=== PATIENT | female | born 1995 | race Caucasian/White ===

== ENCOUNTER 2019-04-22 11:59 | Outpatient (CLI) | payer MEDICAID ==
[2019-04-22 14:44] LABS: ADD UMIC YES; UR ASCORBIC ACID NEGATIVE (NEGATIVE); UR BACTERIA FEW /HPF (NONE SEEN); UR BILIRUBIN (Dip) NEGATIVE (NEGATIVE); UR BLOOD (Dip) NEGATIVE (NEGATIVE); UR CLARITY CLEAR (CLEAR); UR COLOR STRAW (YELLOW); UR GLUCOSE (Dip) NEGATIVE (NEGATIVE); UR KETONES (Dip) NEGATIVE (NEGATIVE); UR LEUKOCYTE ESTERASE (Dip) 1+ Leu/ul (NEGATIVE); UR NITRITE (Dip) NEGATIVE (NEGATIVE); UR RBC 0 /HPF (0-5); UR SPECIFIC GRAVITY (Dip) 1.005 (1.003-1.030); UR SQUAMOUS EPITHELIAL CELL FEW /HPF (FEW); UR TOTAL PROTEIN (Dip) NEGATIVE (NEGATIVE); UR UROBILINOGEN (Dip) NEGATIVE (NEGATIVE); UR WBC 2 /HPF (0-5)
[2019-04-22 15:40] LABS: ADD MAN DIFF? NO
[2019-04-22 15:42] LABS: BASOPHILS % 0.2 % (0.0-2.0); EOSINOPHILS % 0.4 % (0.0-7.0); HEMATOCRIT 34.9 % (37.0-47.0); HEMOGLOBIN 11.3 g/dl (12.0-16.0); LYMPHOCYTES # 1.7 10^3/ul (0.8-2.9); LYMPHOCYTES % 20.3 % (15.0-51.0); MEAN CORPUSCULAR HEMOGLOBIN 28.1 pg (29.0-33.0); MEAN CORPUSCULAR HGB CONC 32.4 g/dl (32.0-37.0); MEAN CORPUSCULAR VOLUME 86.8 fl (82.0-101.0); MEAN PLATELET VOLUME 11.8 fl (7.4-10.4); MONOCYTE # 0.3 10^3/ul (0.3-0.9); MONOCYTES % 4.2 % (0.0-11.0); NEUTROPHIL # 6.1 10^3/ul (1.6-7.5); NEUTROPHILS % 74.5 % (39.0-77.0); PLATELET COUNT 223 10^3/UL (140-415); RED BLOOD COUNT 4.02 10^6/ul (4.20-5.40); RED CELL DISTRIBUTION WIDTH 14.8 % (11.5-14.5)
[2019-04-22 15:42] LABS: WHITE BLOOD COUNT 8.2 10^3/ul (4.8-10.8)
[2019-04-22 16:04] LABS: ALANINE AMINOTRANSFERASE 29 IU/L (13-69); ALBUMIN 3.4 g/dl (3.3-4.9); ALBUMIN/GLOBULIN RATIO 1.06; ALKALINE PHOSPHATASE 133 IU/L (42-121); ANION GAP 8 (5-13); ASPARTATE AMINO TRANSFERASE 25 IU/L (15-46); BILIRUBIN,INDIRECT 0.4 mg/dl (0-1.1); BILIRUBIN,TOTAL 0.4 mg/dl (0.2-1.3); BLOOD UREA NITROGEN 5 mg/dl (7-20); CALCIUM 9.2 mg/dl (8.4-10.2); CARBON DIOXIDE 22 mmol/L (21-31); CHLORIDE 110 mmol/L (97-110); Estimated GFR > 60 mL/min (>60); GLUCOSE 68 mg/dl (70-220); POTASSIUM 4.5 mmol/L (3.5-5.1); SODIUM 140 mmol/L (135-144); TOTAL PROTEIN 6.6 g/dl (6.1-8.1); URIC ACID 4.2 mg/dl (3.1-7.9)
[2019-04-22 16:05] LABS: INR 0.89; PROTIME 12.2 Sec (11.9-14.9)
[2019-04-22 16:06] LABS: PARTIAL THROMBOPLASTIN TIME 29.4 Sec (23.0-35.0)
[2019-04-22] MEDS: LACTATED RINGER'S 1,000 ML IV (19:41)
== END 2019-04-22 21:14 | disposition home or self-care (01) ==
LOC: OBT 11:59 → L-D 12:03 → OBT 21:14
DX: O13.3 Gestational [pregnancy-induced] hypertension without significant proteinuria, third trimester (principal); Z3A.31 31 weeks gestation of pregnancy
CPT/HCPCS: 36415; 76817; 76818; 80053; 81001; 82731; 84560; 85025; 85384; 85610; 85730; 96360; 96361

== ENCOUNTER 2019-04-29 11:30 | Inpatient (IN) | payer MEDICAID ==
[2019-04-29] MEDS: LACTATED RINGER'S 1,000 ML IV (13:53)
[2019-04-29 14:10] LABS: ADD MAN DIFF? NO
[2019-04-29 14:14] LABS: WHITE BLOOD COUNT 8.4 10^3/ul (4.8-10.8)
[2019-04-29 14:14] LABS: BASOPHILS % 0.1 % (0.0-2.0); EOSINOPHILS % 0.5 % (0.0-7.0); HEMATOCRIT 36.2 % (37.0-47.0); HEMOGLOBIN 11.7 g/dl (12.0-16.0); LYMPHOCYTES # 1.6 10^3/ul (0.8-2.9); MEAN CORPUSCULAR HEMOGLOBIN 28.1 pg (29.0-33.0); MEAN CORPUSCULAR HGB CONC 32.3 g/dl (32.0-37.0); MEAN PLATELET VOLUME 12.1 fl (7.4-10.4); MONOCYTE # 0.4 10^3/ul (0.3-0.9); MONOCYTES % 4.5 % (0.0-11.0); NEUTROPHIL # 6.3 10^3/ul (1.6-7.5); NEUTROPHILS % 75.4 % (39.0-77.0); PLATELET COUNT 225 10^3/UL (140-415); RED BLOOD COUNT 4.16 10^6/ul (4.20-5.40); RED CELL DISTRIBUTION WIDTH 14.8 % (11.5-14.5)
[2019-04-29] MEDS: MAGNESIUM SULFATE 4 GM/100 ML 100 ML IVPB (14:16)
[2019-04-29 14:33] LABS: ALANINE AMINOTRANSFERASE 24 IU/L (13-69); ALBUMIN 3.3 g/dl (3.3-4.9); ALBUMIN/GLOBULIN RATIO 1.03; ALKALINE PHOSPHATASE 140 IU/L (42-121); ANION GAP 7 (5-13); ASPARTATE AMINO TRANSFERASE 25 IU/L (15-46); BILIRUBIN,INDIRECT 0.3 mg/dl (0-1.1); BILIRUBIN,TOTAL 0.3 mg/dl (0.2-1.3); BLOOD UREA NITROGEN 6 mg/dl (7-20); CALCIUM 9.3 mg/dl (8.4-10.2); CARBON DIOXIDE 22 mmol/L (21-31); CHLORIDE 110 mmol/L (97-110); CREATININE 0.41 mg/dl (0.44-1.00); Estimated GFR > 60 mL/min (>60); GLUCOSE 64 mg/dl (70-220); POTASSIUM 4.1 mmol/L (3.5-5.1); SODIUM 139 mmol/L (135-144); TOTAL PROTEIN 6.5 g/dl (6.1-8.1); URIC ACID 3.9 mg/dl (3.1-7.9)
[2019-04-29] MEDS: BETAMET NA PHOS/AC(6 MG/ML) 2 ML INJ SYG IM (14:37)
[2019-04-29 14:38] LABS: INR 0.89; PROTIME 12.2 Sec (11.9-14.9)
[2019-04-29] MEDS: MAGNESIUM SULFATE 20 GM/500 ML 500 ML IV (14:51)
[2019-04-29] MEDS: LABETALOL 100 MG TAB PO (21:36)
[2019-04-30] MEDS: MAGNESIUM SULFATE 20 GM/500 ML 500 ML IV ×3 (00:37→19:48)
[2019-04-30] MEDS: LACTATED RINGER'S 1,000 ML IV ×3 (00:42→19:23)
[2019-04-30 01:11] LABS: MAGNESIUM 4.3 mg/dl (1.7-2.5)
[2019-04-30] MEDS: PRENATAL VITAMIN PO (08:26)
[2019-04-30] MEDS: LABETALOL 100 MG TAB PO ×2 (08:27→20:54)
[2019-04-30 08:35] LABS: MAGNESIUM 4.9 mg/dl (1.7-2.5)
[2019-04-30 13:03] LABS: COLLECTION PERIOD 24 hrs
[2019-04-30 13:16] LABS: COLLECTION PERIOD 24 hrs; VOLUME 2825 ml/24hrs; VOLUME 2825 mls
[2019-04-30 13:18] LABS: SCRET 0.41 mg/dl (0.44-1.00)
[2019-04-30 13:26] LABS: CREATININE CLEARANCE 205.3 mls/min (84.0-162.0)
[2019-04-30] MEDS: BETAMET NA PHOS/AC(6 MG/ML) 2 ML INJ SYG IM (14:40)
[2019-04-30 15:49] LABS: RAPID PLASMA REAGIN NONREACTIVE (NR)
[2019-04-30 18:37] LABS: MAGNESIUM 5.2 mg/dl (1.7-2.5)
[2019-05-01 01:16] LABS: MAGNESIUM 5.3 mg/dl (1.7-2.5)
[2019-05-01] MEDS: LACTATED RINGER'S 1,000 ML IV (02:04)
[2019-05-01] MEDS: MAGNESIUM SULFATE 20 GM/500 ML 500 ML IV (05:52)
[2019-05-01 06:58] LABS: MAGNESIUM 5.4 mg/dl (1.7-2.5)
[2019-05-01] MEDS: PRENATAL VITAMIN PO (08:56)
[2019-05-01] MEDS: LABETALOL 100 MG TAB PO ×2 (09:00→21:00)
[2019-05-02] MEDS: PRENATAL VITAMIN PO (08:51)
[2019-05-02] MEDS: LABETALOL 100 MG TAB PO ×2 (09:00→21:00)
[2019-05-03] MEDS: PRENATAL VITAMIN PO (10:04)
[2019-05-03] MEDS: LABETALOL 100 MG TAB PO ×3 (10:04→20:34)
[2019-05-03 15:42] LABS: ADD MAN DIFF? NO
[2019-05-03 15:45] LABS: BASOPHILS % 0.2 % (0.0-2.0); EOSINOPHILS % 0.2 % (0.0-7.0); HEMATOCRIT 33.7 % (37.0-47.0); HEMOGLOBIN 10.7 g/dl (12.0-16.0); LYMPHOCYTES # 1.9 10^3/ul (0.8-2.9); LYMPHOCYTES % 19.4 % (15.0-51.0); MEAN CORPUSCULAR HEMOGLOBIN 28.2 pg (29.0-33.0); MEAN CORPUSCULAR HGB CONC 31.8 g/dl (32.0-37.0); MEAN CORPUSCULAR VOLUME 88.7 fl (82.0-101.0); MEAN PLATELET VOLUME 11.9 fl (7.4-10.4); MONOCYTE # 0.7 10^3/ul (0.3-0.9); MONOCYTES % 6.8 % (0.0-11.0); NEUTROPHIL # 7.1 10^3/ul (1.6-7.5); NEUTROPHILS % 72.5 % (39.0-77.0); NUCLEATED RED BLOOD CELLS% 0.2 /100WBC (0.0-0.0); PLATELET COUNT 206 10^3/UL (140-415); RED CELL DISTRIBUTION WIDTH 15.2 % (11.5-14.5)
[2019-05-03 15:45] LABS: WHITE BLOOD COUNT 9.8 10^3/ul (4.8-10.8)
[2019-05-03 16:02] LABS: URIC ACID 4.3 mg/dl (3.1-7.9)
[2019-05-03 16:03] LABS: ALANINE AMINOTRANSFERASE 23 IU/L (13-69); ALBUMIN 2.7 g/dl (3.3-4.9); ALBUMIN/GLOBULIN RATIO 1.12; ALKALINE PHOSPHATASE 104 IU/L (42-121); ANION GAP 9 (5-13); ASPARTATE AMINO TRANSFERASE 20 IU/L (15-46); BILIRUBIN,INDIRECT 0.4 mg/dl (0-1.1); BILIRUBIN,TOTAL 0.4 mg/dl (0.2-1.3); BLOOD UREA NITROGEN 12 mg/dl (7-20); CALCIUM 8.8 mg/dl (8.4-10.2); CARBON DIOXIDE 21 mmol/L (21-31); CHLORIDE 109 mmol/L (97-110); CREATININE 0.47 mg/dl (0.44-1.00); Estimated GFR > 60 mL/min (>60); GLUCOSE 98 mg/dl (70-220); POTASSIUM 4.2 mmol/L (3.5-5.1); SODIUM 139 mmol/L (135-144); TOTAL PROTEIN 5.1 g/dl (6.1-8.1)
[2019-05-04] MEDS: LABETALOL 100 MG TAB PO ×4 (02:40→21:06)
[2019-05-04] MEDS: PRENATAL VITAMIN PO (08:57)
[2019-05-05] MEDS: LABETALOL 100 MG TAB PO ×4 (02:10→17:38)
[2019-05-05] MEDS: PRENATAL VITAMIN PO (08:03)
[2019-05-06] MEDS: LABETALOL 100 MG TAB PO ×5 (00:06→23:45)
[2019-05-06] MEDS: PRENATAL VITAMIN PO (08:48)
[2019-05-07] MEDS: LABETALOL 100 MG TAB PO ×4 (06:00→23:56)
[2019-05-07] MEDS: PRENATAL VITAMIN PO (09:00)
[2019-05-08] MEDS: LABETALOL 100 MG TAB PO ×3 (05:51→17:54)
[2019-05-08] MEDS: PRENATAL VITAMIN PO (09:16)
[2019-05-09] MEDS: LABETALOL 100 MG TAB PO ×5 (00:01→23:47)
[2019-05-09] MEDS: PRENATAL VITAMIN PO (09:18)
[2019-05-10] MEDS: LABETALOL 100 MG TAB PO ×3 (05:53→18:04)
[2019-05-10] MEDS: PRENATAL VITAMIN PO (08:36)
[2019-05-11] MEDS: LABETALOL 100 MG TAB PO ×4 (00:07→17:27)
[2019-05-11] MEDS: PRENATAL VITAMIN PO (08:46)
[2019-05-11] MEDS: LACTATED RINGER'S 1,000 ML IV ×2 (12:46→23:30)
[2019-05-11] MEDS ORDERED: MISOPROSTOL 200 MCG TAB PR ×3 (13:00→23:00)
[2019-05-11] MEDS ORDERED: OXYTOCIN 30 UNITS/LR 500 ML IV ×4 (13:00→23:00)
[2019-05-11] MEDS ORDERED: CARBOPROST 250 MCG INJ IM ×3 (13:00→23:00)
[2019-05-11] MEDS ORDERED: METHYLERGONOVINE 0.2 MG INJ IM ×2 (13:00→20:00)
[2019-05-11] MEDS ORDERED: CLINDAMYCIN 900 MG/D5W (PMX) 50 ML IVPB (13:00)
[2019-05-11 13:21] LABS: ADD MAN DIFF? NO
[2019-05-11 13:25] LABS: BASOPHILS % 0.3 % (0.0-2.0); EOSINOPHILS # 0.1 10^3/ul (0.0-0.5); EOSINOPHILS % 0.9 % (0.0-7.0); HEMATOCRIT 38.2 % (37.0-47.0); HEMOGLOBIN 12.4 g/dl (12.0-16.0); LYMPHOCYTES # 1.8 10^3/ul (0.8-2.9); LYMPHOCYTES % 22.2 % (15.0-51.0); MEAN CORPUSCULAR HEMOGLOBIN 27.6 pg (29.0-33.0); MEAN CORPUSCULAR HGB CONC 32.5 g/dl (32.0-37.0); MEAN CORPUSCULAR VOLUME 84.9 fl (82.0-101.0); MEAN PLATELET VOLUME 11.8 fl (7.4-10.4); MONOCYTE # 0.4 10^3/ul (0.3-0.9); MONOCYTES % 5.1 % (0.0-11.0); NEUTROPHIL # 5.6 10^3/ul (1.6-7.5); PLATELET COUNT 245 10^3/UL (140-415); RED CELL DISTRIBUTION WIDTH 15.5 % (11.5-14.5)
[2019-05-11 13:25] LABS: WHITE BLOOD COUNT 7.9 10^3/ul (4.8-10.8)
[2019-05-11 13:44] LABS: PROTIME 12.3 Sec (11.9-14.9)
[2019-05-11 13:45] LABS: PARTIAL THROMBOPLASTIN TIME 30.9 Sec (23.0-35.0)
[2019-05-11 14:13] LABS: HEPATITIS B SURFACE ANTIGEN NEGATIVE (NEGATIVE)
[2019-05-11 16:52] LABS: RAPID PLASMA REAGIN NONREACTIVE (NR)
[2019-05-11] MEDS: CLINDAMYCIN 900 MG/D5W (PMX) 50 ML IVPB ×2 (20:04→23:31)
[2019-05-11] MEDS: CITRIC ACID/NA CITRATE 30 ML CUP PO (20:18)
[2019-05-11] MEDS: ONDANSETRON 4 MG INJ IV (20:19)
[2019-05-11] MEDS: GENTAMICIN 400 MG in SOD CHLORIDE 0.9% 100 ML IVPB (20:30)
[2019-05-11] MEDS ORDERED: morphine SULFATE/PF (10 MG/10 ML) INJ (20:36)
[2019-05-11] MEDS ORDERED: FENTAnyl 50 MCG/ML VIAL (20:36)
[2019-05-11] MEDS ORDERED: METOCLOPRAMIDE 10 MG INJ (20:36)
[2019-05-11] MEDS ORDERED: OXYTOCIN 10 UNIT INJ (20:37)
[2019-05-11] MEDS ORDERED: TRIMETHOBENZAMIDE 100 MG/ML VIAL IM ×2 (21:00)
[2019-05-11] MEDS ORDERED: DIPHENHYDRAMINE 50 MG INJ IV ×2 (21:00)
[2019-05-11] MEDS ORDERED: EPHEDrine 25 MG/5 ML SYG IV (21:00)
[2019-05-11] MEDS ORDERED: IPRATROPIUM (NEB) 0.5 MG/2.5 ML AMP HHN (21:00)
[2019-05-11] MEDS ORDERED: ONDANSETRON 4 MG INJ IV (21:00)
[2019-05-11] MEDS ORDERED: MEPERIDINE 25 MG INJ IV (21:00)
[2019-05-11] MEDS ORDERED: LABETALOL HCL 20MG INJ IV (21:00)
[2019-05-11] MEDS ORDERED: FENTAnyl 50 MCG/ML VIAL IV ×3 (21:00)
[2019-05-11] MEDS ORDERED: hydrALAzine 20 MG INJ IV (21:00)
[2019-05-11] MEDS ORDERED: NALBUPHINE HCL (10 MG/1 ML) INJ IV (21:00)
[2019-05-11] MEDS ORDERED: NALOXONE (0.4 MG/ML) INJ IV (21:00)
[2019-05-11] MEDS ORDERED: MIDAZOLAM 1 MG/ML 2 ML INJ IV (21:00)
[2019-05-11] MEDS ORDERED: HYDROmorphONE 1 MG/5 ML IV SYRINGE IV ×3 (21:00)
[2019-05-11] MEDS ORDERED: morphine 2 MG INJ IV (21:00)
[2019-05-11] MEDS ORDERED: ALBUTEROL 0.083% (NEB) 2.5 MG/3 ML AMP HHN (21:00)
[2019-05-11] MEDS ORDERED: OXYCODONE/ACETAMINOPHEN (5/325) TAB PO ×3 (21:00→23:00)
[2019-05-11] MEDS: MAGNESIUM SULFATE 4 GM/100 ML 100 ML IV ×2 (22:23→23:00)
[2019-05-11] MEDS: OXYTOCIN 30 UNITS/LR 500 ML IV (22:54)
[2019-05-11] MEDS: MAGNESIUM SULFATE 20 GM/500 ML 500 ML IV ×2 (22:54→23:30)
[2019-05-11] MEDS: morphine 2 MG INJ IV (22:56)
[2019-05-11] MEDS ORDERED: NACL 0.9% 3 ML SYG IV ×2 (23:00)
[2019-05-11] MEDS ORDERED: CA GLUCONATE (GM) 10% 10ML INJ IV (23:00)
[2019-05-12 01:16] LABS: MAGNESIUM 3.5 mg/dl (1.7-2.5)
[2019-05-12] MEDS: LACTATED RINGER'S 1,000 ML IV ×3 (03:33→11:33)
[2019-05-12 06:58] LABS: ADD MAN DIFF? NO
[2019-05-12 07:02] LABS: BASOPHILS % 0.3 % (0.0-2.0); EOSINOPHILS % 0.2 % (0.0-7.0); HEMATOCRIT 35.4 % (37.0-47.0); HEMOGLOBIN 11.6 g/dl (12.0-16.0); LYMPHOCYTES # 1.5 10^3/ul (0.8-2.9); MEAN CORPUSCULAR HEMOGLOBIN 28.4 pg (29.0-33.0); MEAN CORPUSCULAR HGB CONC 32.8 g/dl (32.0-37.0); MEAN CORPUSCULAR VOLUME 86.8 fl (82.0-101.0); MEAN PLATELET VOLUME 11.7 fl (7.4-10.4); MONOCYTE # 0.6 10^3/ul (0.3-0.9); MONOCYTES % 5.1 % (0.0-11.0); NEUTROPHIL # 9.5 10^3/ul (1.6-7.5); NEUTROPHILS % 80.9 % (39.0-77.0); PLATELET COUNT 215 10^3/UL (140-415); RED BLOOD COUNT 4.08 10^6/ul (4.20-5.40); RED CELL DISTRIBUTION WIDTH 15.1 % (11.5-14.5)
[2019-05-12 07:02] LABS: WHITE BLOOD COUNT 11.7 10^3/ul (4.8-10.8)
[2019-05-12 07:20] LABS: MAGNESIUM 4.3 mg/dl (1.7-2.5)
[2019-05-12] MEDS: CLINDAMYCIN 900 MG/D5W (PMX) 50 ML IVPB ×2 (07:42→14:59)
[2019-05-12] MEDS: KETOROLAC 30 MG INJ IV (07:45)
[2019-05-12] MEDS: ONDANSETRON 4 MG INJ IV (08:15)
[2019-05-12] MEDS: MAGNESIUM SULFATE 20 GM/500 ML 500 ML IV (10:14)
[2019-05-12 12:21] LABS: MAGNESIUM 3.9 mg/dl (1.7-2.5)
[2019-05-12 19:50] LABS: MAGNESIUM 3.6 mg/dl (1.7-2.5)
[2019-05-12] MEDS: IBUPROFEN 800 MG TAB PO (21:41)
[2019-05-13] MEDS: IBUPROFEN 800 MG TAB PO ×3 (05:34→22:09)
[2019-05-13] MEDS: SENNA/DOCUSATE NA (8.6MG/50MG) TAB PO ×2 (08:53→22:09)
[2019-05-13] MEDS: OXYCODONE/ACETAMINOPHEN (5/325) TAB PO (18:53)
[2019-05-14] MEDS: IBUPROFEN 800 MG TAB PO ×3 (06:23→22:00)
[2019-05-14] MEDS: SENNA/DOCUSATE NA (8.6MG/50MG) TAB PO ×2 (08:51→21:05)
[2019-05-15] MEDS: IBUPROFEN 800 MG TAB PO ×2 (00:50→09:14)
[2019-05-15] MEDS: SENNA/DOCUSATE NA (8.6MG/50MG) TAB PO (09:00)
== END 2019-05-15 17:39 | disposition home or self-care (01) | DRG 787 ==
LOC: PP1 04-30 07:00 → L-D 11:30 → PP1 05-12 00:04 → L-D 05-11 19:32
PROC: 10D00Z1 Extraction of Products of Conception, Low, Open Approach (ICD-10-PCS; principal; 2019-05-11 20:00)
DX: O60.13X0 Preterm labor second trimester with preterm delivery third trimester, not applicable or unspecified (principal); O99.12 Other diseases of the blood and blood-forming organs and certain disorders involving the immune mechanism complicating childbirth; O14.93 Unspecified pre-eclampsia, third trimester; D62 Acute posthemorrhagic anemia; O90.81 Anemia of the puerperium; O36.5930 Maternal care for other known or suspected poor fetal growth, third trimester, not applicable or unspecified; O76 Abnormality in fetal heart rate and rhythm complicating labor and delivery; Z3A.33 33 weeks gestation of pregnancy; Z37.0 Single live birth
CPT/HCPCS: 76818; 76820; 80053; 82575; 82962; 83735; 84156; 84560; 85025; 85384; 85610; 85730; 86592; 86850; 86900; 86901; 87340; 88307; 99464

== ENCOUNTER 2019-05-27 12:49 | Inpatient (IN) | payer MEDICAID ==
[2019-05-27 13:30] LABS: ADD MAN DIFF? NO
[2019-05-27 13:34] LABS: BASOPHILS % 0.2 % (0.0-2.0); EOSINOPHILS % 0.1 % (0.0-7.0); HEMATOCRIT 41.7 % (37.0-47.0); HEMOGLOBIN 13.7 g/dl (12.0-16.0); LYMPHOCYTES % 9.9 % (15.0-51.0); MEAN CORPUSCULAR HEMOGLOBIN 28.1 pg (29.0-33.0); MEAN CORPUSCULAR HGB CONC 32.9 g/dl (32.0-37.0); MEAN CORPUSCULAR VOLUME 85.5 fl (82.0-101.0); MEAN PLATELET VOLUME 9.9 fl (7.4-10.4); MONOCYTE # 0.2 10^3/ul (0.3-0.9); MONOCYTES % 2.4 % (0.0-11.0); NEUTROPHIL # 8.6 10^3/ul (1.6-7.5); NEUTROPHILS % 87.2 % (39.0-77.0); PLATELET COUNT 331 10^3/UL (140-415); RED BLOOD COUNT 4.88 10^6/ul (4.20-5.40); RED CELL DISTRIBUTION WIDTH 14.1 % (11.5-14.5)
[2019-05-27 13:34] LABS: WHITE BLOOD COUNT 9.8 10^3/ul (4.8-10.8)
[2019-05-27] MEDS: SOD CHLORIDE 0.9% 1,000 ML IV ×2 (13:41→17:55)
[2019-05-27] MEDS: KETOROLAC 30 MG INJ IV (13:41)
[2019-05-27 13:51] LABS: ALANINE AMINOTRANSFERASE 26 IU/L (13-69); ALBUMIN 4.4 g/dl (3.3-4.9); ALBUMIN/GLOBULIN RATIO 1.12; ALKALINE PHOSPHATASE 91 IU/L (42-121); ANION GAP 12 (5-13); ASPARTATE AMINO TRANSFERASE 32 IU/L (15-46); BILIRUBIN,INDIRECT 0.4 mg/dl (0-1.1); BILIRUBIN,TOTAL 0.4 mg/dl (0.2-1.3); BLOOD UREA NITROGEN 11 mg/dl (7-20); CALCIUM 9.8 mg/dl (8.4-10.2); CARBON DIOXIDE 22 mmol/L (21-31); CHLORIDE 105 mmol/L (97-110); CREATININE 0.44 mg/dl (0.44-1.00); Estimated GFR > 60 mL/min (>60); GLUCOSE 125 mg/dl (70-220); LIPASE 65 U/L (23-300); POTASSIUM 4.4 mmol/L (3.5-5.1); SODIUM 139 mmol/L (135-144); TOTAL PROTEIN 8.3 g/dl (6.1-8.1)
[2019-05-27 14:12] LABS: ADD UMIC YES; UR ASCORBIC ACID NEGATIVE (NEGATIVE); UR BACTERIA FEW /HPF (NONE SEEN); UR BILIRUBIN (Dip) NEGATIVE (NEGATIVE); UR BLOOD (Dip) 3+ mg/dL (NEGATIVE); UR CLARITY SLIGHTLY CLOUDY (CLEAR); UR COLOR YELLOW (YELLOW); UR GLUCOSE (Dip) NEGATIVE (NEGATIVE); UR KETONES (Dip) NEGATIVE (NEGATIVE); UR LEUKOCYTE ESTERASE (Dip) 2+ Leu/ul (NEGATIVE); UR MUCUS FEW /HPF (NONE SEEN); UR NITRITE (Dip) NEGATIVE (NEGATIVE); UR RBC > 182 /HPF (0-5); UR SPECIFIC GRAVITY (Dip) 1.025 (1.003-1.030); UR TOTAL PROTEIN (Dip) 2+ mg/dl (NEGATIVE); UR UROBILINOGEN (Dip) NEGATIVE (NEGATIVE); UR WBC 24 /HPF (0-5)
[2019-05-27] MEDS ORDERED: ACETAMINOPHEN 325 MG TAB PO ×2 (17:00→17:30)
[2019-05-27] MEDS ORDERED: ONDANSETRON 4 MG INJ IV ×2 (17:00→17:30)
[2019-05-27] MEDS ORDERED: CEFTRIAXONE 1 GM/50 ML (PMX) 50 ML IVPB (17:30)
[2019-05-27] MEDS ORDERED: morphine 2 MG INJ IV (17:30)
[2019-05-27] MEDS ORDERED: NACL 0.9% 3 ML SYG IV (17:30)
[2019-05-27] MEDS ORDERED: ZOLPIDEM 5 MG TAB PO (17:30)
[2019-05-27] MEDS ORDERED: HYDROCODONE/APAP (5/325) TAB PO (17:30)
[2019-05-27] MEDS ORDERED: DOCUSATE SODIUM 100 MG CAP PO (17:30)
[2019-05-27] MEDS: IBUPROFEN 600 MG TAB PO (21:19)
[2019-05-28] MEDS: SOD CHLORIDE 0.9% 1,000 ML IV ×4 (03:30→14:56)
[2019-05-28] MEDS: IBUPROFEN 600 MG TAB PO (04:14)
[2019-05-28 06:28] LABS: ADD MAN DIFF? NO
[2019-05-28 06:31] LABS: BASOPHILS % 0.2 % (0.0-2.0); HEMATOCRIT 38.4 % (37.0-47.0); HEMOGLOBIN 12.5 g/dl (12.0-16.0); LYMPHOCYTES % 8.4 % (15.0-51.0); MEAN CORPUSCULAR HEMOGLOBIN 27.8 pg (29.0-33.0); MEAN CORPUSCULAR HGB CONC 32.6 g/dl (32.0-37.0); MEAN CORPUSCULAR VOLUME 85.5 fl (82.0-101.0); MEAN PLATELET VOLUME 10.2 fl (7.4-10.4); MONOCYTE # 0.8 10^3/ul (0.3-0.9); MONOCYTES % 7.2 % (0.0-11.0); NEUTROPHIL # 9.8 10^3/ul (1.6-7.5); NEUTROPHILS % 83.9 % (39.0-77.0); PLATELET COUNT 298 10^3/UL (140-415); RED BLOOD COUNT 4.49 10^6/ul (4.20-5.40); RED CELL DISTRIBUTION WIDTH 14.4 % (11.5-14.5)
[2019-05-28 06:31] LABS: WHITE BLOOD COUNT 11.6 10^3/ul (4.8-10.8)
[2019-05-28 06:50] LABS: ANION GAP 9 (5-13); BLOOD UREA NITROGEN 8 mg/dl (7-20); CALCIUM 9.1 mg/dl (8.4-10.2); CARBON DIOXIDE 24 mmol/L (21-31); CHLORIDE 107 mmol/L (97-110); CREATININE 0.43 mg/dl (0.44-1.00); Estimated GFR > 60 mL/min (>60); GLUCOSE 128 mg/dl (70-220); MAGNESIUM 1.7 mg/dl (1.7-2.5); PHOSPHORUS 3.6 mg/dl (2.5-4.9); POTASSIUM 3.7 mmol/L (3.5-5.1); SODIUM 140 mmol/L (135-144)
[2019-05-28] MEDS ORDERED: metroNIDAZOLE 500 MG/NS (PMX) 100 ML IVPB (16:00)
[2019-05-28] MEDS ORDERED: CEFTRIAXONE 1 GM/50 ML (PMX) 50 ML IVPB (16:00)
[2019-05-28] MEDS: MEROPENEM 1 GM/50ML(PMX) 50 ML IVPB ×2 (16:20→16:54)
[2019-05-29] MEDS ORDERED: PROPOFOL 20 ML (00:27)
[2019-05-29] MEDS ORDERED: LIDOCAINE 2% (SDV) 5 ML INJ (00:31)
[2019-05-29] MEDS: MEROPENEM 1 GM/50ML(PMX) 50 ML IVPB ×3 (01:00→17:13)
[2019-05-29] MEDS ORDERED: DEXAMETHASONE 4 MG/ML 5 ML INJ (01:09)
[2019-05-29] MEDS ORDERED: ROCURONIUM 50 MG INJ (01:09)
[2019-05-29] MEDS ORDERED: ONDANSETRON 4 MG INJ (01:10)
[2019-05-29] MEDS: LIDOCAINE 1% (MPF) 30 ML INJ (01:17)
[2019-05-29] MEDS: BUPIVACAINE 0.25%/EPI (SDV) 30 ML INJ (01:17)
[2019-05-29] MEDS ORDERED: KETOROLAC 30 MG INJ (01:19)
[2019-05-29] MEDS ORDERED: HYDROmorphONE 1 MG/5 ML IV SYRINGE IV ×3 (03:00)
[2019-05-29] MEDS ORDERED: MEPERIDINE 25 MG INJ IV (03:00)
[2019-05-29] MEDS ORDERED: EPHEDrine 25 MG/5 ML SYG IV (03:00)
[2019-05-29] MEDS ORDERED: FENTAnyl 50 MCG/ML VIAL IV ×2 (03:00)
[2019-05-29] MEDS ORDERED: hydrALAzine 20 MG INJ IV (03:00)
[2019-05-29] MEDS ORDERED: LABETALOL HCL 20MG INJ IV (03:00)
[2019-05-29] MEDS ORDERED: MIDAZOLAM 1 MG/ML 2 ML INJ IV (03:00)
[2019-05-29] MEDS ORDERED: ALBUMIN HUMAN 5% 250 ML IV (03:00)
[2019-05-29] MEDS ORDERED: ALBUTEROL 0.083% (NEB) 2.5 MG/3 ML AMP HHN (03:00)
[2019-05-29] MEDS ORDERED: METOCLOPRAMIDE 10 MG INJ IV (03:00)
[2019-05-29] MEDS ORDERED: DIPHENHYDRAMINE 50 MG INJ IV (03:00)
[2019-05-29] MEDS ORDERED: OXYCODONE/ACETAMINOPHEN (5/325) TAB PO ×2 (03:00)
[2019-05-29] MEDS ORDERED: ONDANSETRON 4 MG INJ IV ×2 (03:00→03:30)
[2019-05-29] MEDS ORDERED: GLYCOPYRROLATE 0.4 MG INJ (03:13)
[2019-05-29] MEDS ORDERED: NEOSTIGMINE 3 MG/3 ML SYRINGE (03:13)
[2019-05-29] MEDS: FENTAnyl 50 MCG/ML VIAL IV (03:28)
[2019-05-29] MEDS: D5W-0.45 NACL + KCL 20 MEQ 1,000 ML IV ×3 (04:36→22:31)
[2019-05-29] MEDS: FAMOTIDINE 20 MG INJ IV (08:45)
[2019-05-29] MEDS: ENOXAPARIN 40 MG/0.4 ML SYG SC (08:45)
[2019-05-29] MEDS ORDERED: SEVOFLURANE 15 MIN (12:27)
[2019-05-29 18:16] LABS: ADD UMIC YES; UR ASCORBIC ACID NEGATIVE (NEGATIVE); UR BILIRUBIN (Dip) NEGATIVE (NEGATIVE); UR BLOOD (Dip) 2+ mg/dL (NEGATIVE); UR CLARITY CLEAR (CLEAR); UR COLOR YELLOW (YELLOW); UR GLUCOSE (Dip) NEGATIVE (NEGATIVE); UR KETONES (Dip) NEGATIVE (NEGATIVE); UR LEUKOCYTE ESTERASE (Dip) NEGATIVE Leu/ul (NEGATIVE); UR NITRITE (Dip) NEGATIVE (NEGATIVE); UR RBC 6 /HPF (0-5); UR SPECIFIC GRAVITY (Dip) 1.014 (1.003-1.030); UR TOTAL PROTEIN (Dip) NEGATIVE (NEGATIVE); UR UROBILINOGEN (Dip) NEGATIVE (NEGATIVE); UR WBC 2 /HPF (0-5)
[2019-05-29] MEDS ORDERED: FAMOTIDINE 20 MG TAB (19:51)
[2019-05-29] MEDS: FAMOTIDINE 20 MG TAB PO (20:06)
[2019-05-29] MEDS: HYDROCODONE/APAP (10/325) TAB PO (20:06)
[2019-05-30] MEDS: MEROPENEM 1 GM/50ML(PMX) 50 ML IVPB ×3 (00:45→18:08)
[2019-05-30] MEDS: D5W-0.45 NACL + KCL 20 MEQ 1,000 ML IV ×2 (04:04→14:45)
[2019-05-30 06:27] LABS: ADD MAN DIFF? NO
[2019-05-30 06:32] LABS: BASOPHILS % 0.4 % (0.0-2.0); EOSINOPHILS % 0.4 % (0.0-7.0); HEMOGLOBIN 10.5 g/dl (12.0-16.0); LYMPHOCYTES # 1.5 10^3/ul (0.8-2.9); LYMPHOCYTES % 27.1 % (15.0-51.0); MEAN CORPUSCULAR HEMOGLOBIN 27.9 pg (29.0-33.0); MEAN CORPUSCULAR HGB CONC 30.9 g/dl (32.0-37.0); MEAN CORPUSCULAR VOLUME 90.4 fl (82.0-101.0); MEAN PLATELET VOLUME 10.7 fl (7.4-10.4); MONOCYTE # 0.4 10^3/ul (0.3-0.9); MONOCYTES % 7.4 % (0.0-11.0); NEUTROPHIL # 3.6 10^3/ul (1.6-7.5); NEUTROPHILS % 64.3 % (39.0-77.0); PLATELET COUNT 260 10^3/UL (140-415); RED BLOOD COUNT 3.76 10^6/ul (4.20-5.40); RED CELL DISTRIBUTION WIDTH 14.9 % (11.5-14.5)
[2019-05-30 06:32] LABS: WHITE BLOOD COUNT 5.5 10^3/ul (4.8-10.8)
[2019-05-30] MEDS: IBUPROFEN 600 MG TAB PO ×3 (06:32→23:15)
[2019-05-30] MEDS: ENOXAPARIN 40 MG/0.4 ML SYG SC (06:33)
[2019-05-30 07:00] LABS: ALANINE AMINOTRANSFERASE 36 IU/L (13-69); ALBUMIN 2.9 g/dl (3.3-4.9); ALBUMIN/GLOBULIN RATIO 0.96; ALKALINE PHOSPHATASE 70 IU/L (42-121); ANION GAP 6 (5-13); ASPARTATE AMINO TRANSFERASE 38 IU/L (15-46); BILIRUBIN,INDIRECT 0.4 mg/dl (0-1.1); BILIRUBIN,TOTAL 0.4 mg/dl (0.2-1.3); BLOOD UREA NITROGEN 8 mg/dl (7-20); CALCIUM 8.4 mg/dl (8.4-10.2); CARBON DIOXIDE 27 mmol/L (21-31); CHLORIDE 108 mmol/L (97-110); CREATININE 0.47 mg/dl (0.44-1.00); Estimated GFR > 60 mL/min (>60); GLUCOSE 94 mg/dl (70-220); POTASSIUM 4.2 mmol/L (3.5-5.1); SODIUM 141 mmol/L (135-144); TOTAL PROTEIN 5.9 g/dl (6.1-8.1)
[2019-05-30] MEDS: FAMOTIDINE 20 MG TAB PO ×2 (08:27→20:25)
[2019-05-31] MEDS: MEROPENEM 1 GM/50ML(PMX) 50 ML IVPB ×2 (00:06→08:53)
[2019-05-31] MEDS: D5W-0.45 NACL + KCL 20 MEQ 1,000 ML IV (06:37)
[2019-05-31] MEDS: ENOXAPARIN 40 MG/0.4 ML SYG SC (06:38)
[2019-05-31] MEDS: FAMOTIDINE 20 MG TAB PO (08:53)
== END 2019-05-31 15:05 | disposition home or self-care (01) | DRG 769 ==
LOC: FTE 12:49 → PP2 16:56
PROC: 0FT44ZZ Resection of Gallbladder, Percutaneous Endoscopic Approach (ICD-10-PCS; principal; 2019-05-29 00:17)
DX: O99.63 Diseases of the digestive system complicating the puerperium (principal); K80.00 Calculus of gallbladder with acute cholecystitis without obstruction; O86.20 Urinary tract infection following delivery, unspecified; O99.215 Obesity complicating the puerperium; E66.2 Morbid (severe) obesity with alveolar hypoventilation; Z68.42 Body mass index [BMI] 45.0-49.9, adult
CPT/HCPCS: 36415; 76705; 80048; 80053; 81001; 81025; 83036; 83690; 83735; 84100; 85025; 87081; 88304; 96361; 96374; 99285-25